=== PATIENT | female | born 1985 | race Caucasian/White ===

== ENCOUNTER → 2020-10-27 13:35 | Outpatient (CLI) | payer OTHER, SELFPAY ==
[2020-10-27] MEDS: COVID-19 VACC, Ad26(JANSSEN)/PF 0.5 ML IM (13:42)
== END ==
PROVIDERS: Visit Provider Internal Medicine
DX: Z23 Encounter for immunization (principal)
CPT/HCPCS: 0031A; 91303

== ENCOUNTER → 2023-07-03 11:40 | Outpatient (CLI) | payer OTHER, SELFPAY ==
[2023-07-03 12:24] LABS: Add Manual Diff / Slide Review NO; Basophils Absolute Auto 0 /uL (0-100); Basophils Percent Auto 0.7 % (0-2); Eosinophils Absolute Auto 100 /uL (0-450); Eosinophils Percent Auto 1.4 % (2-4); Hematocrit 37.7 % (36-46); Hemoglobin 12.4 g/dL (12.0-16.0); Lymphocytes Absolute Auto 1900 /uL (1100-4500); Lymphocytes Percent Auto 30.1 % (25-40); Mean Corpuscular Hemoglobin 29.6 PG (26-34); Mean Corpuscular Volume 89.9 fL (80-100); Monocytes Absolute Auto 400 /uL (0-900); Monocytes Percent Auto 5.6 % (3-14); Neutrophils Absolute Auto 3900 /uL (1500-7000); Neutrophils Percent Auto 62.2 % (50-75); Platelet Count 307 X10^3/uL (150-400); Red Blood Cell Count 4.19 X10^6/uL (4.0-5.2); Red Cell Distribution Width 14.2 % (11.6-14.8); White Blood Cell Count 6.2 X10^3/uL (4.5-11.0)
[2023-07-03 12:48] LABS: Alanine Aminotransferase 31 IU/L (<35); Albumin 4.1 g/dL (3.5-5.0); Albumin Globulin Ratio 1.2 (1.0-2.8); Alkaline Phosphatase 44 U/L (38-126); Aspartate Aminotransferase 36 IU/L (14-36); BUN Creatinine Ratio 22.9 (6-22); Bilirubin Total 0.6 mg/dL (0.2-1.3); Blood Urea Nitrogen 11 mg/dL (7-17); Calcium 9.2 mg/dL (8.4-10.2); Carbon Dioxide 29 mmol/L (22-32); Chloride 102 mmol/L (98-107); Estimated Glomerular Filt Rate > 60 mL/min (>60); Globulin 3.3 g/dL (1.7-4.1); Glucose 83 mg/dL (70-100); Potassium 3.9 mmol/L (3.4-5.1); Sodium 137 mmol/L (137-145); Total Protein 7.4 g/dL (6.3-8.2)
[2023-07-03 12:49] LABS: HEMOLYSIS 58 (0-50)
[2023-07-03 13:25] LABS: Bilirubin Urine UA NEGATIVE (NEGATIVE); Color Urine UA YELLOW; Glucose Urine UA NEGATIVE (Negative); Ketones Urine UA NEGATIVE (NEGATIVE); Leukocyte Esterase Urine UA NEGATIVE (NEGATIVE); Nitrite Urine UA NEGATIVE (Negative); Occult Blood Urine UA NEGATIVE (Negative); Protein Urine UA NEGATIVE (Negative); Urobilinogen Urine UA 0.2 E.U./dL (0.2)
[2023-07-03 13:29] LABS: Appearance Urine UA Clear; pH Urine UA 7.5 (4.5-8.0)
[2023-07-03 13:35] LABS: Bacteria Urine None Seen; Culture Indicated Urine Cult Not Indicated; RBC Urine None Seen (0-5/HPF); Squamous Epithelial Cell Urine 0-1 /HPF (0-5/HPF); WBC Urine None Seen (0-5/HPF)
[2023-07-03 16:05] LABS: TSH w/ Reflex to FT4 2.37 uIU/mL (0.47-4.68)
== END ==
PROVIDERS: PCP Family Medicine; Referring Provider Family Medicine; Visit Provider Family Medicine
DX: R55 Syncope and collapse (principal); R00.2 Palpitations; R31.9 Hematuria, unspecified
CPT/HCPCS: 36415; 80053; 81001; 84443; 85025

== ENCOUNTER → 2023-07-28 14:00 | Outpatient (CLI) | payer OTHER, SELFPAY | LOC: CAR 07-29 06:36 | PROVIDERS: PCP Family Medicine; Referring Provider Family Medicine; Visit Provider Family Medicine | DX: R55 Syncope and collapse (principal); R00.2 Palpitations | CPT/HCPCS: 93246 ==

== ENCOUNTER → 2023-09-10 07:38 | Outpatient (CLI) | payer OTHER, SELFPAY ==
--- NOTE | 2023-09-10 07:43 | DI.US.S_ITS ---
PROCEDURE: US PELVIC COMPLETE INDICATIONS: ABNORMAL BLEEDING. INTERMITTENT SPOTTING X 3 MONTHS. TECHNIQUE: Real-time scanning was performed of the pelvic organs, with image documentation. Additional endovaginal scanning was necessary due to incomplete visualization of the adnexal and endometrial structures by transabdominal scanning. COMPARISON: None. FINDINGS: Uterus: Uterus is anteverted and normal in size at 8.3 x 5.7 x 4.3 cm. The myometrium is heterogeneous. The endometrium measures 16.2 mm combined thickness. The endometrium is diffusely echogenic with a questionable focal isoechoic mass measuring 2.7 x 2.9 x 1.9 cm. There is trace endometrial fluid. Nabothian cysts. Ovaries: The right ovary measures 3.3 x 3.3 x 1.7 cm, with a calculated ovarian volume of 9.3 cc. The left ovary measures 4.1 x 2.9 x 2.4 cm, with a calculated ovarian volume of 14.8 cc. The ovaries have a normal sonographic appearance. There is a mildly complex cystic lesion in the left ovary measuring 2.1 x 1.3 x 1.2 cm with peripheral vascularity. There are greater than 12 follicles in each ovary which are small and peripheral in location. Other: No pathologic free abdominal or pelvic fluid. IMPRESSION: 1. Thickened endometrium measuring 1.6 cm. There is a questionable focal isoechoic mass within the endometrium measuring 2.7 x 2.9 x 1.9 cm. Differential includes residual blood products versus a polyp. Recommend short interval follow-up for further evaluation. 2. Mildly complex cystic lesion in the left ovary measuring 2.1 x 1.3 x 1.2 cm with peripheral vascularity likely represents a corpus luteal cyst versus hemorrhagic cyst. Attention on follow-up ultrasound. Dictated by: Rika Justice M.D. on 09/10/2023 at 11:00 Approved by: Rika Justice M.D. on 09/10/2023 at 11:26
--- NOTE | 2023-09-10 13:09 | DI.ECHO.S_ITS ---
[facility] +---------+ : : [address] [address] : : : : [id number] : : : : Phone: [phone]+ Echocardiogram Report + + :Name: ANNE ELLIS Study Date: 09/10/2023 Height: 62.5 in: :[facility] ReadingLocation: Weight: 152 lb : : Gender: Female BSA: 1.7 m2 : :: 1985 Age: 38 yrs BP: 111/71 mmHg: :Reason For Study: SYNCOPE, TACHYCARDIA : :Ordering Physician: KATE, : :QUINTIN Najera Performed By: Tiffanie Travis : :Referring: QUINTIN LOVE : + + Interpretation Summary The left ventricle is normal in size and wall thickness. The left ventricular ejection fraction is normal. The ejection fraction is estimated to be 60-65%. Diastolic parameters suggest probable normal left ventricular diastolic function and normal filling pressures. The right ventricle is normal in size and function. No gross significant valvular pathology seen. The IVC is of normal diameter and collapses greater than 50% with a sniff. This suggests a low right atrial pressure of 3 mm Hg. Procedure: A two-dimensional transthoracic echocardiogram with color flow and Doppler was performed. The study quality was technically adequate. There is no prior echocardiogram noted for this patient. The patient was in sinus rhythm with heart rates between 61-82 bpm during the exam. Left Ventricle: The left ventricle is normal in size and wall thickness. There is no thrombus. The ejection fraction is estimated to be 60-65%. The left ventricular ejection fraction is normal. Left ventricular wall motion is normal. Diastolic parameters suggest probable normal left ventricular diastolic function and normal filling pressures. Right Ventricle: The right ventricle is normal in size and function. Atria: The left atrial size is normal. Right atrial size is normal. There is no Doppler evidence for an interatrial shunt. Mitral Valve: The mitral valve is normal in structure and function. There is trace mitral regurgitation. Aortic Valve: The aortic valve opens well. Not well-seen from short axis view. There is no aortic valve stenosis. No aortic regurgitation is present. Tricuspid Valve: The tricuspid valve is normal in structure and function. There is trace tricuspid regurgitation. Pulmonary artery pressures cannot be estimated because of the lack of a measurable TR jet velocity. Pulmonic Valve: The pulmonic valve is not well visualized. There is no pulmonic valvular regurgitation. Great Vessels: The aortic root is normal size. The dimensions of the ascending aorta are normal. The IVC is of normal diameter and collapses greater than 50% with a sniff. This suggests a low right atrial pressure of 3 mm Hg. Pericardium/ Pleura There is no pericardial effusion. There is no pleural effusion. MMode/2D Measurements & Calculations LVIDd: 4.4 cm LVOT diam: 2.0 cm LVIDs: 3.1 cm Ao root diam: 2.6 cm FS: 30.2 % asc Aorta Diam: 2.3 cm IVSd: 0.64 cm Ao Arch Diam (Prox Trans): 2.8 cm LVPWd: 0.66 cm LV grayson. diameter/BSA (cm/m^2): 2.6 LV sys. diameter/BSA (cm/m^2): 1.8 LA A2 area: 15.3 cm2 RA long axis: 3.9 cm LA A4 area: 14.1 cm2 RA area: 10.7 cm2 LA length (vol): 4.3 cm RA vol: 24.6 ml LA vol: 43.0 ml RA : 14.4 ml/m2 LA vol index: 25.1 ml/m2 IVC diam: 1.8 cm RVD1 (basal): 3.1 cm RVD2 (mid): 2.6 cm TAPSE: 2.2 cm Doppler Measurements & Calculations Ao V2 max: 138.3 cm/sec LVOT Max Yariel: 116.5 cm/sec Ao V2 mean: 101.1 cm/sec LV V1 max P.4 mmHg Ao max P.7 mmHg LV V1 VTI: 21.7 cm Ao mean P.5 mmHg CM(I,D): 2.4 cm2 Ao V2 VTI: 28.1 cm CM(V,D): 2.6 cm2 sev ratio: 0.77 CM indexed to BSA (cm^2/m^2): 1.4 MV E max yariel: 81.0 cm/sec PA V2 max: 95.3 cm/sec MV A max yariel: 46.9 cm/sec PA V2 mean: 66.2 cm/sec MV E/A: 1.7 PA mean P.9 mmHg Med Peak E' Yariel: 14.2 cm/sec PA pr(Accel): 22.5 mmHg E/E' med: 5.7 Lat Peak E' Yariel: 16.6 cm/sec E/E' lat: 4.9 E/e' average: 5.3 MV dec time: 0.20 sec SV(LVOT): 66.4 ml Reading Physician:05:50 PM
== END ==
LOC: US 07:41
PROVIDERS: PCP Family Medicine; Referring Provider Family Medicine; Visit Provider Family Medicine
DX: N93.9 Abnormal uterine and vaginal bleeding, unspecified (principal); R55 Syncope and collapse; R00.2 Palpitations; R93.89 Abnormal findings on diagnostic imaging of other specified body structures; N83.202 Unspecified ovarian cyst, left side
CPT/HCPCS: 76830; 76856; 93306

== ENCOUNTER → 2023-10-10 08:59 | Outpatient (CLI) | payer OTHER, SELFPAY ==
[2023-10-14 18:09] LABS: Chlamydia trachomatis Negative (Negative); Mycoplasma genitalium Negative (Negative); Neisseria gonorrhoeae Negative (Negative)
== END ==
PROVIDERS: PCP Family Medicine; Visit Provider Family Medicine
DX: Z11.3 Encounter for screening for infections with a predominantly sexual mode of transmission (principal); N93.9 Abnormal uterine and vaginal bleeding, unspecified
CPT/HCPCS: 87210; 87491; 87563; 87591

== ENCOUNTER → 2023-10-10 09:26 | Outpatient (CLI) | payer OTHER, SELFPAY ==
[2023-10-10 11:09] LABS: Follicle Stimulating Hormone 5.25 mIU/mL
[2023-10-10 11:13] LABS: Prolactin 11.9 ng/mL (3.0-18.6)
[2023-10-10 11:30] LABS: Testosterone 63.3 ng/dL (5.71-77.0)
[2023-10-10 11:35] LABS: Appearance Urine UA CLEAR; Bilirubin Urine UA NEGATIVE (NEGATIVE); Color Urine UA YELLOW; Glucose Urine UA NEGATIVE (Negative); Ketones Urine UA NEGATIVE (NEGATIVE); Leukocyte Esterase Urine UA NEGATIVE (NEGATIVE); Nitrite Urine UA NEGATIVE (Negative); Occult Blood Urine UA NEGATIVE (Negative); Protein Urine UA NEGATIVE (Negative); Specific Gravity Urine UA 1.025 (1.000-1.035); Urobilinogen Urine UA 0.2 E.U./dL (0.2)
[2023-10-10 11:43] LABS: Bacteria Urine None Seen; Culture Indicated Urine Cult Not Indicated; RBC Urine None Seen (0-5/HPF); Squamous Epithelial Cell Urine None Seen (0-5/HPF); Urine Volume 10mL (spun); WBC Urine None Seen (0-5/HPF)
[2023-10-10 13:01] LABS: Urine N gonorrhoeae NOT DETECTED
[2023-10-10 13:06] LABS: Urine Chlamydia NOT DETECTED
== END ==
PROVIDERS: PCP Family Medicine; Referring Provider Family Medicine; Visit Provider Family Medicine
DX: F32.9 Major depressive disorder, single episode, unspecified (principal); R31.9 Hematuria, unspecified; R55 Syncope and collapse; R00.2 Palpitations; N93.9 Abnormal uterine and vaginal bleeding, unspecified; Z11.3 Encounter for screening for infections with a predominantly sexual mode of transmission
CPT/HCPCS: 36415; 81001; 83001; 83002; 84146; 84403; 87210; 87491; 87563; 87591

== ENCOUNTER → 2023-11-07 12:25 | Outpatient (CLI) | payer OTHER, SELFPAY ==
--- NOTE | 2023-11-07 12:27 | DI.US.S_ITS ---
PROCEDURE: US EXTREMELY NONVASC UPPER RT INDICATIONS: ARM MASS TECHNIQUE: Real-time scanning was performed of the right arm, with image documentation. COMPARISON: None. FINDINGS: Examination of right proximal forearm at patient's reported area of palpable lump shows solid-appearing structure within subcutaneous soft tissue measures 2.9 x 0.5 x 2.3 cm in size and is isoechoic to adjacent subcutaneous fat. No internal vascularity is seen. IMPRESSION: Finding most consistent with 2.9 x 0.5 x 2.3 cm lipoma within forearm soft tissue suggest clinical correlation and follow-up. Dictated by: Adrián Sen M.D. on 11/07/2023 at 16:09 Approved by: Adrián Sen M.D. on 11/07/2023 at 16:20
--- NOTE | 2023-11-07 12:27 | DI.US.S_ITS ---
PROCEDURE: US PELVIC COMPLETE INDICATIONS: Repeated endometrial polyps TECHNIQUE: Real-time scanning was performed of the pelvic organs, with image documentation. Additional endovaginal scanning was necessary due to incomplete visualization of the adnexal and endometrial structures by transabdominal scanning. COMPARISON: [facility], US, US PELVIC COMPLETE, 09/10/2023, 7:55. FINDINGS: Uterus: Uterus is anteverted and normal in size at 6.4 x 3.8 x 5.2 cm. The myometrium is homogeneous. The endometrium measures 6.9 mm combined thickness. Sonographic findings suggest the presence of a subtle echogenic mass within the uterine fundus which measures 1.4 x 0.5 x 1.5 cm. A vascular stalk is likely present centrally. Ovaries: The right ovary measures 3.3 x 3.6 x 2.2 cm, with a calculated ovarian volume of 13.9 cc. The left ovary measures 3.4 x 2.2 x 2.8 cm, with a calculated ovarian volume of 11.1 cc. The ovaries have a normal sonographic appearance. There are greater than 12 follicles in the bilateral ovaries. No adnexal masses are seen. Other: No pathologic free abdominal or pelvic fluid. IMPRESSION: 1. Sonographic findings suggesting endometrial polyp. If further characterization is warranted, hysterosonogram could be used. 2. Findings meet the [place] definition of polycystic ovaries. In the absence of ovulatory dysfunction or clinically/biochemically diagnosed hyperandrogenism, findings are non specific and do not indicate the presence of polycystic ovarian syndrome. We strive to produce accurate, complete, and clear reports of imaging services. To assist us in improving patient care, this report was composed using standard report templates and voice recognition software. Therefore, it may contain abnormal punctuation, insertions and/or omissions. Occasional wrong-word or sound-alike substitutions may occur. Though we review the report and make efforts to correct it, we do recommend that the report be read carefully in proper context to recognize any text inaccuracies. Dictated by: Cydney Villalta M.D. on 11/07/2023 at 16:53 Approved by: Cydney Villalta M.D. on 11/07/2023 at 16:56
== END ==
PROVIDERS: PCP Family Medicine; Referring Provider Family Medicine; Visit Provider Family Medicine
DX: N93.9 Abnormal uterine and vaginal bleeding, unspecified (principal); R22.31 Localized swelling, mass and lump, right upper limb; N84.0 Polyp of corpus uteri; R93.89 Abnormal findings on diagnostic imaging of other specified body structures; R93.5 Abnormal findings on diagnostic imaging of other abdominal regions, including retroperitoneum
CPT/HCPCS: 76830; 76856; 76882; 93975

== ENCOUNTER 2024-01-02 08:13 | Day surgery (SDC) | payer OTHER, SELFPAY ==
[2023-12-31 12:24] VITALS: BMI 27.5
--- NOTE | 2024-01-02 | PATH_ITS ---
[facility] Accession Number: [id number] No. of containers..01 Tissue . 01 Material submitted: . endometrium - ENDOMETRIAL POLYP . 01 Diagnosis: ENDOMETRIAL POLYP: Portions of proliferative and disordered proliferative endometrium; negative for endometrioid intraepithelial neoplasia or malignancy. Scant portions of smooth muscle are present; negative for significant atypia. Some endometrial fragments demonstrate prominent vessels, suggestive of polyp, if clinical and imaging studies are concordant. MRV 01/07/2024 1416 Local . 01 Electronically signed: . Bhavana Wright MD, Pathologist NPI- [id number] . 01 Gross description: . ENDOMETRIAL POLYP: Received in formalin are minute fragments of mucoid and hemorrhagic material measuring 2.0 x 2.0 x 0.2 cm in aggregate. Submitted in toto in 1 cassette. /SONJA 01/05/20241933 Local . 01 Pathologist provided ICD-10: N84.1 . 01 CPT . 579470 Specimen Comment: A courtesy copy of this report has been sent to [facility] Pathology Performed at: [address] [address], [place], [place] [id number] MD aMngo Cedillo MD Phone: [phone]
[2024-01-02] MEDS: LACTATED RINGERS 1,000 ML 42 ML IV (08:42)
[2024-01-02] MEDS: ACETAMINOPHEN 325 MG TABLET 975 MG PO (08:44)
[2024-01-02 08:47] VITALS: BP 103/70; PULSE 72; RESP 16; TEMP 36.6; O2SAT 100; BMI 27.3
--- NOTE | 2024-01-02 08:56 | PM.HP.1 ---
History of Present Illness History of Present Illness Chief complaint: abnormal uterine bleeding Narrative: 38-year-old female presenting today for same-day surgery for hysteroscopic polypectomy with Mirena IUD insertion. She reports feeling well, continuing to have some irregular bleeding. Denies any other changes to her symptoms, or new medical conditions. [facility] Medical History Lipoma Polycystic ovarian syndrome Ovarian cyst Endometrial thickening on ultrasound MDD (major depressive disorder) Surgical History History of tonsillectomy History of wisdom tooth extraction Family History Mother Cancer Father Bipolar 1 disorder Social History marital status: number of children: 0 household members: spouse housing: house occupational status: employed current occupational exposures/hazards: Yes Previous occupational history: works for Remote [employer] Smoking Status: Never smoker Meds Home Medications and Allergies Home Medications Medication Instructions Recorded Confirmed Type cholecalciferol (vitamin D3) 125 125 mcg PO DAILY 06/30/23 11/21/23 History mcg (5,000 unit) capsule multivitamin 1 tab PO DAILY 06/30/23 11/21/23 History omega 2-xyy-mcz-fish oil 1,000 mg 1 cap PO BID 06/30/23 11/21/23 History (120 mg-180 mg) capsule (Fish Oil) Allergies Allergy/AdvReac Type Severity Reaction Status Date / Time No Known Drug Allergies Allergy Verified 01/02/24 08:40 Review of Systems Review of Systems ROS: Yes All systems reviewed with the patient and are negative except as otherwise documented Exam Vital Signs (past 8 hours): - 01/02/24 08:47 Temperature 98 F Pulse Rate 72 Respiratory Rate 16 Blood Pressure 103/70 Pulse Oximetry 100 Oxygen Delivery Method Room Air Oxygen Delivery Method Room Air Const General: healthy appearing, comfortable and No acute distress Resp Effort & Inspection: normal respiratory effort and able to speak in complete sentences Skin General: no rashes or lesions noted Neuro Cognition: normal cognition Speech: speech normal Extrem General: normal to inspection Psych Mood: congruent mood Affect: normal affect Objective Imaging US - abdomen: Radiologist's impression: INDICATIONS: Repeated endometrial polyps TECHNIQUE: Real-time scanning was performed of the pelvic organs, with image documentation. Additional endovaginal scanning was necessary due to incomplete visualization of the adnexal and endometrial structures by transabdominal scanning. COMPARISON: [facility], US, US PELVIC COMPLETE, 09/10/2023, 7:55. FINDINGS: Uterus: Uterus is anteverted and normal in size at 6.4 x 3.8 x 5.2 cm. The myometrium is homogeneous. The endometrium measures 6.9 mm combined thickness. Sonographic findings suggest the presence of a subtle echogenic mass within the uterine fundus which measures 1.4 x 0.5 x 1.5 cm. A vascular stalk is likely present centrally. Ovaries: The right ovary measures 3.3 x 3.6 x 2.2 cm, with a calculated ovarian volume of 13.9 cc. The left ovary measures 3.4 x 2.2 x 2.8 cm, with a calculated ovarian volume of 11.1 cc. The ovaries have a normal sonographic appearance. There are greater than 12 follicles in the bilateral ovaries. No adnexal masses are seen. Other: No pathologic free abdominal or pelvic fluid. IMPRESSION: 1. Sonographic findings suggesting endometrial polyp. If further characterization is warranted, hysterosonogram could be used. 2. Findings meet the [place] definition of polycystic ovaries. In the absence of ovulatory dysfunction or clinically/biochemically diagnosed hyperandrogenism, findings are non specific and do not indicate the presence of polycystic ovarian syndrome. We strive to produce accurate, complete, and clear reports of imaging services. To assist us in improving patient care, this report was composed using standard report templates and voice recognition software. Therefore, it may contain abnormal punctuation, insertions and/or omissions. Occasional wrong-word or sound-alike substitutions may occur. Though we review the report and make efforts to correct it, we do recommend that the report be read carefully in proper context to recognize any text inaccuracies. Dictated by: Cydney Villalta M.D. on 11/07/2023 at 16:53 Approved by: Cydney Villalta M.D. on 11/07/2023 at 16:56 Assessment & Plan Assessment and plan (1) Abnormal uterine bleeding due to endometrial polyp: Status: Acute Assessment & Plan narrative: 38-year-old female with suspected endometrial polyp, here for hysteroscopic polypectomy with Mirena IUD insertion. We reviewed the risks/benefits/alternatives to the procedure, and surgical consent was signed today. -no preoperative antibiotics indicated -VTE risk low, SCDs for prophylaxis -plan for same-day procedure with discharge home today Surgery consent We discussed the risks/benefits/alternatives to the proposed procedure, to include but not limited to: -risk of bleeding, requiring medications, blood products, or other procedures as indicated -risk of infection, requiring prolonged hospital stay or other procedures -risk of injury to other structures, including bowel, bladder, blood vessels, nerves, etc. which may also require additional procedures -risk of adverse reaction to anesthesia or medications -risk of venous thromboembolism and associated sequelae -risk of rare complications such as cardiac arrest, or extremely rarely, Patient is aware of the risks, and desires to proceed with planned surgical procedure. Time Spent With Patient Time with patient: less than 30 minutes
--- NOTE | 2024-01-02 09:34 | P.OP_ITS ---
Operative Date/Time/Diagnoses Date of procedure: 01/02/24 Time of procedure: 09:00 Pre-op diagnosis: Abnormal uterine bleeding Suspected endometrial polyp Post-op diagnosis: same Procedure & Clinicians Procedure: Diagnostic hysteroscopy Hysteroscopic polypectomy Dilation and curettage Mirena intrauterine device insertion Same procedure as scheduled: Yes Indications: 38yo F with AUB-P counseled and consented for hysteroscopic polypectomy with Mirena IUD insertion. Surgeon: Mahsa Stark Click Yes if Unassisted: Yes Anesthesia Type: General Operative Notes Findings: Endometrial polyp noted on the left lateral uterine wall. Otherwise normal appearing uterine cavity. Bilateral tubal ostia visualized. Closure Type: not applicable Specimen(s): other (endometrial polyp) Prosthetic devices, grafts, tissues, transplants, or devices: Mirena IUD Lot #[id number] Exp: Estimated Blood Loss (mL): 5 Blood products transfused: none Procedure in detail: The risks, benefits, indications and alternatives of the procedure were reviewed with the patient and informed consent was obtained. The pt was taken to the operating room where general anesthesia with LMA was obtained without diffic ulty. The pt was then placed in the low lithotomy position using gel-padded Shayne stirrups. Sequential compression devices were placed bilaterally for VTE prophylaxis. The pt was then prepped and draped in the sterile fashion. A sterile speculum was placed in the patient?s vagina and the cervix was visualized. A single tooth tenaculum was used to grasp the anterior lip of the cervix. The cervix was then gently, dilated to a size 8 Hegar dilator. The Myosure operative hysteroscope was first primed and pressure set. The operative hysteroscope was then advanced through the endocervical canal under direct visualization. The uterus was distended with warm saline, and notable for the above findings. The Myosure Lite was then inserted into the operative hysteroscope. The endometrial polyp was resected easily. The operative hysteroscope was then removed under direct visualization. Tissue obtained was sent to pathology for review. The Mirena IUD was then opened and inserted per auto fleet maintenance manager instructions. The strings were trimmed to 2cm. The single tooth tenaculum was removed from the anterior lip of the cervix. The tenaculum site was noted to be hemostatic after direct pressure and silver nitrate was applied. All instruments were then removed from the patient?s vagina. Hysteroscopic fluid deficit was 300cc of normal saline. The patient tolerated the procedure well. At the completion of the case the sponge and needle counts were correct x 2. The patient was taken to the PACU in stable condition. Complications: none Post-operative Condition: stable Disposition: PACU Plan for aftercare: Discharge home once meeting discharge criteria.
[2024-01-02 09:38] VITALS: BP 94/64; PULSE 70; RESP 16; TEMP 36.4; O2SAT 98
[2024-01-02 09:42] VITALS: BP 96/69; PULSE 72; RESP 15; O2SAT 99
[2024-01-02 09:47] VITALS: BP 103/77; PULSE 72; RESP 16; O2SAT 97
--- NOTE | 2024-01-02 09:48 | SUR.OPER ---
Lithotomy on padded OR bed, head on pillow, arms secured on padded arm boards at <90 degrees abduction. Legs secured in padded yellow fins stirrups.
[2024-01-02 10:04] VITALS: BP 107/72; PULSE 64; RESP 18; TEMP 36.8; O2SAT 100
== END 2024-01-02 10:33 | disposition home or self-care (01) ==
PROVIDERS: PCP Family Medicine; Referring Provider Student in an Organized Health Care Education/Training Program; Visit Provider Student in an Organized Health Care Education/Training Program
PROC: 0UDB8ZZ Extraction of Endometrium, Via Natural or Artificial Opening Endoscopic (ICD-10-PCS; CPT 58558; principal; 2024-01-02 09:00)
DX: N93.9 Abnormal uterine and vaginal bleeding, unspecified (principal); Z30.430 Encounter for insertion of intrauterine contraceptive device; N84.0 Polyp of corpus uteri
CPT/HCPCS: 58558; 58300; 81025; J1100; J2250; J2405; J2704; J3010; J7298

== ENCOUNTER → 2024-06-07 16:20 | Outpatient (CLI) | payer OTHER, SELFPAY ==
--- NOTE | 2024-06-07 16:23 | DI.US.S_ITS ---
PROCEDURE: US PELVIC COMPLETE INDICATIONS: check IUD placement; dyspareunia TECHNIQUE: Real-time scanning was performed of the pelvic organs, with image documentation. Additional endovaginal scanning was necessary due to incomplete visualization of the adnexal and endometrial structures by transabdominal scanning. COMPARISON: [facility], US, US PELVIC COMPLETE, 11/07/2023, 13:14. FINDINGS: Uterus: Uterus is anteverted and normal in size at 8.7 x 3.3 x 5.1 cm. The myometrium is homogeneous. Intrauterine device is seen in expected position within the endometrial canal. Ovaries: The right ovary measures 3.4 x 2.2 x 3.2 cm, with a calculated ovarian volume of 12.3 cc. The left ovary measures 3.7 x 2.7 x 3.2 cm, with a calculated ovarian volume of 16.7 cc. The ovaries have a normal sonographic appearance. Greater than 12 follicles can be seen in each ovary. No adnexal masses are seen. Other: No pathologic free abdominal or pelvic fluid. IMPRESSION: 1. Intrauterine device is in expected position within the endometrial canal. No recurrent endometrial thickening is seen. 2. Polycystic morphology of the ovaries. Recommend correlation with clinical and laboratory findings to exclude polycystic ovarian syndrome. Approved by: Bhavesh Casillas M.D. on 06/08/2024 at 13:49
== END ==
PROVIDERS: PCP Family Medicine; Referring Provider Student in an Organized Health Care Education/Training Program; Visit Provider Student in an Organized Health Care Education/Training Program
DX: N93.9 Abnormal uterine and vaginal bleeding, unspecified (principal); N94.10 Unspecified dyspareunia; Z97.5 Presence of (intrauterine) contraceptive device
CPT/HCPCS: 76856

== ENCOUNTER 2025-06-03 09:38 | Emergency (ER) | payer OTHER, SELFPAY ==
[2025-06-03] VITALS (8 sets, daily range): BP systolic 104–129; BP diastolic 59–74; PULSE 66–94; RESP 16–22; TEMP 36.3; O2SAT 97–100; BMI 29.2
--- NOTE | 2025-06-03 10:08 | EKG_ITS ---
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
--- NOTE | 2025-06-03 10:11 | DI.RAD.S_ITS ---
PROCEDURE: XR CHEST 1V INDICATIONS: Chest pain TECHNIQUE: One view of the chest was acquired. COMPARISON: None. FINDINGS: Surgical changes and devices: None. Lungs and pleura: Lungs are clear. No pleural effusions or pneumothorax. Mediastinum: Mediastinal contours appear normal. Heart size is normal. Bones and chest wall: No suspicious bony lesions. Overlying soft tissues appear unremarkable. IMPRESSION: No acute cardiopulmonary abnormality is seen. Dictated by: Indio Beard M.D. on 06/03/2025 at 10:03 Approved by: Indio Beard M.D. on 06/03/2025 at 10:03
--- NOTE | 2025-06-03 10:13 | ED.CHESTPAIN ---
HPI - Chest Pain General Chief Complaint: Chest Pain Stated Complaint: Chest pain, this morning Time Seen by Provider: 06/03/25 10:11 Source: patient Mode of arrival: Ambulatory Limitations: no limitations History of Present Illness HPI narrative: patient is sent here from work/medical clinic for sudden onset of left-sided pressure lasting about 30 minutes and has resolved. She did have palpitations feeling short of breath sweaty but no nausea. Pain did not radiate. [place] dizzy. [place] similar to episode she had about a year ago and had Holter monitoring for 2 weeks without any diagnosis. Has been doing well since then. Patient denies any history of blood clots in legs or lungs. No recent long travel. No calf pain. No primary family history of coronary artery disease. Patient does not smoke. Patient has low heart score. Denies abdominal pain or back pain. No syncope. She was dizzy Related Data Home Medications ?Medication ?Instructions ?Recorded ?Confirmed cholecalciferol (vitamin D3) 125 125 mcg PO DAILY 06/30/23 11/21/23 mcg (5,000 unit) capsule multivitamin 1 tab PO DAILY 06/30/23 11/21/23 omega 3-ttz-lhq-fish oil 1,000 mg 1 cap PO BID 06/30/23 11/21/23 (120 mg-180 mg) capsule (Fish Oil) Previous Rx's ?Medication ?Instructions ?Recorded estradiol 1 mg tablet 1 mg PO DAILY #42 tabs 06/21/24 Allergies Allergy/AdvReac Type Severity Reaction Status Date / Time No Known Drug Allergies Allergy Verified 06/03/25 10:03 Review of Systems Review of Systems Narrative: GENERAL: Negative chills, fatigue, malaise, fever, positivesweats. HEENT: Negative sinus pain, ear pain, sore throat RESPIRATORY: positivedyspnea, negative cough CARDIOVASCULAR: Positivechest pain, palpitations GASTROINTESTINAL: Negative vomiting, nausea, abdominal pain : Negative dysuria, frequency, hematuria MUSCULOSKELETAL: Negative muscle or bony pain SKIN: Negative rash, skin lesions NEUROLOGIC: Negative weakness, numbness, positive dizzy ROS Unobtainable: All systems reviewed & are unremarkable except as noted in HPI and below Patient History Medical History (Updated 06/03/25 @ 13:14 by Hannah Espinosa MD) Abnormal uterine bleeding due to endometrial polyp Lipoma Polycystic ovarian syndrome Ovarian cyst Endometrial thickening on ultrasound MDD (major depressive disorder) Surgical History (Updated 05/10/24 @ 08:31 by Mahsa Stark DO) Status post hysteroscopic polypectomy (~12/2023) History of tonsillectomy History of wisdom tooth extraction Family History Mother Cancer Father Bipolar 1 disorder Social History marital status: number of children: 0 household members: spouse housing: house occupational status: employed current occupational exposures/hazards: Yes Previous occupational history: works for [email or web address] Smoking Status: Never smoker Smoking Status: Never smoker alcohol intake frequency: holidays/special occasions only Exam Narrative Exam Narrative: GENERAL: in no distress, not toxic not dyspneic HEAD: Normocephalic. EYES: Pupils equal round ENT: Mucous membranes moist. NECK: Trachea midline. CARDIOVASCULAR: Regular rate and rhythm RESPIRATORY: Clear to auscultation. Breath sounds equal bilaterally. No wheezes, rales, or rhonchi. GASTROINTESTINAL: Abdomen soft, non-tender BACK: No flank tenderness. EXTREMITIES: No gross deformities. NEURO: AOx4. Clear speech SKIN: Warm and dry PSYCH: Not anxious, is cooperative Initial Vital Signs Initial Vital Signs: Vital Signs Temperature 97.4 F L 06/03/25 10:02 Pulse Rate 71 06/03/25 10:02 Respiratory Rate 16 06/03/25 10:02 Blood Pressure 117/74 06/03/25 10:02 Pulse Oximetry 100 06/03/25 10:02 Oxygen Delivery Method Room Air 06/03/25 10:02 Scores HEART Score Heart Score history: Slightly Suspicious Heart Score EKG: Normal Heart Score Age: < 45 years old Heart Score risk factors: No known risk factors Heart Score troponin: < or = to normal limit Heart Score Total: 0 Course Orders Ordered: ED Orders 06/03/25 10:08 EKG-12 Lead Stat 06/03/25 10:11 XR chest 1V Stat 06/03/25 10:25 EC echo limited Stat Exercise treadmill NON NUC Stat Complete Blood Count AUTO DIFF Stat Comprehensive Metabolic Panel Stat D Dimer Stat Magnesium Stat PTT Partial Thromboplastin Lane Stat Test Serum,Qual Stat Prothrombin Time INR Stat Troponin I Stat Vital Signs Vital signs: Vital Signs - 8 hr 06/03/25 10:02 06/03/25 11:36 06/03/25 11:38 Temperature 97.4 F L Pulse Rate 71 69 66 Respiratory Rate 16 22 20 Blood Pressure 117/74 Pulse Oximetry 100 100 100 Oxygen Delivery Method Room Air 06/03/25 11:38 06/03/25 12:00 06/03/25 12:01 Temperature Pulse Rate 76 Respiratory Rate 20 Blood Pressure 129/64 104/59 L Pulse Oximetry 100 Oxygen Delivery Method 06/03/25 12:01 06/03/25 12:42 06/03/25 12:42 Temperature Pulse Rate 75 93 H Respiratory Rate 20 Blood Pressure 110/72 Pulse Oximetry 100 97 Oxygen Delivery Method 06/03/25 12:44 06/03/25 12:44 06/03/25 13:00 Temperature Pulse Rate 94 H Respiratory Rate 20 Blood Pressure 121/61 108/67 Pulse Oximetry 97 Oxygen Delivery Method 06/03/25 13:00 Temperature Pulse Rate 81 Respiratory Rate 21 Blood Pressure Pulse Oximetry 97 Oxygen Delivery Method MDM - Chest Pain Lab Data 06/03/25 10:25 06/03/25 10:25 Labs: Lab Results 06/03/25 Range/Units 10:25 WBC 7.7 (4.5-11.0) X10^3/uL RBC 4.42 (4.0-5.2) X10^6/uL Hgb 13.2 (12.0-16.0) g/dL Hct 39.5 (36-46) % MCV 89.2 (80-100) fL MCH 29.8 (26-34) PG MCHC 33.4 (30-36) % RDW 13.8 (11.6-14.8) % Plt Count 314 (150-400) X10^3/uL Neut % (Auto) 65.6 (50-75) % Lymph % (Auto) 26.1 (25-40) % [place] % (Auto) 6.2 (3-14) % Eos % (Auto) 1.6 L (2-4) % Baso % (Auto) 0.5 (0-2) % Neut # (Auto) 5000 (8811-9530) /uL Lymph # (Auto) 2000 (3014-2956) /uL [place] # (Auto) 500 (0-900) /uL Eos # (Auto) 100 (0-450) /uL Baso # (Auto) 0 (0-100) /uL PT 12.8 H (9.4-12.5) SECONDS INR 1.1 (0.9-1.3) APTT 30 (25.1-36.5) SECONDS D-Dimer 406 (<500) ng/ml Sodium 141 (137-145) mmol/L Potassium 3.8 (3.4-5.1) mmol/L Chloride 104 (98-107) mmol/L Carbon Dioxide 27 (22-32) mmol/L BUN 15 (7-17) mg/dL Creatinine 0.66 (0.52-1.04) mg/dL Estimated GFR > 60 (>60) mL/min BUN/Creatinine Ratio 22.7 H (6-22) Glucose 94 (70-99) mg/dL Calcium 9.3 (8.4-10.2) mg/dL Magnesium 2.1 (1.6-2.3) mg/dL Total Bilirubin 0.3 (0.2-1.3) mg/dL AST 26 (14-36) IU/L ALT 19 (<35) IU/L Alkaline Phosphatase 79 (38-126) U/L Troponin I < 0.012 (0.01-0.034) ng/mL Total Protein 8.0 (6.3-8.2) g/dL Albumin 4.7 (3.5-5.0) g/dL Globulin 3.3 (1.7-4.1) g/dL Albumin/Globulin Ratio 1.4 (1.0-2.8) Serum , Qual Negative (Negative) Imaging Data Chest x-ray: Radiologist's Impression: [address] [address] XRay Report Signed Patient: Anne Ellis MR#: [id number] : 1985 Acct:[id number] Age/Sex: 40 / F Date of Service: 06/03/25 Loc: ED Accession Number: [id number] Procedure: XR chest 1V Ordering Provider: Hannah Espinosa MD PROCEDURE: XR CHEST 1V INDICATIONS: Chest pain TECHNIQUE: One view of the chest was acquired. COMPARISON: None. FINDINGS: Surgical changes and devices: None. Lungs and pleura: Lungs are clear. No pleural effusions or pneumothorax. Mediastinum: Mediastinal contours appear normal. Heart size is normal. Bones and chest wall: No suspicious bony lesions. Overlying soft tissues appear unremarkable. IMPRESSION: No acute cardiopulmonary abnormality is seen. Dictated by: Indio Beard M.D. on 06/03/2025 at 10:03 Approved by: Indio Beard M.D. on 06/03/2025 at 10:03 stress test : Radiologist's Impression: [place] [address] Nuclear Medicine Report Signed Patient: Anne Ellis MR#: [id number] : 1985 Acct:[id number] Age/Sex: 40 / F Date of Service: 06/03/25 Loc: ED Accession Number: [id number] Procedure: Exercise treadmill NON NUC Ordering Provider: Hannah Espinosa MD PROCEDURE:NM EXERCISE TREADMILL NON NUC COMPARISON:None. INDICATIONS:chest pain FINDINGS:Patient exercised per the standard Howard protocol. Total exercise time was 9 minutes and 59 seconds. Test was terminated secondary to fatigue. Maximum heart rate attained is 189 bpm which is 103% of max impacted heart rate. Maximum blood pressure was 140/[place] [address]. JEANNE -10%. 12.8 METS. Significant baseline artifact noted in the early stress phase. However baseline artifact resolved as the stress test progressed. No ischemic changes noted. No arrhythmias present. Normal heart rate and blood pressure response to exercise present. No chest pains voiced. IMPRESSION: 1. Negative exercise treadmill stress test for ischemia. 2. Good exercise capacity. *Dr. Hannah Espinosa notified of results. Dictated by: Jt Sen M.D. on 06/03/2025 at 12:45 Approved by: Jt Sen M.D. on 06/03/2025 at 12:49 echocardiogram: Radiologist's Impression: [place] [id number] Echocardiography Report Signed Patient: Anne Ellis MR#: [id number] : 1985 Acct:[id number] Age/Sex: 40 / F Date of Service: 06/03/25 Loc: ED Accession Number: [id number] Procedure: EC echo limited Ordering Provider: Hannah Espinosa MD [facility]---------+ [facility] : : [address] : : [place] : : [id number] : : Phone: [phone] Echocardiogram Report + + :Name: ANNE ELLIS Study Date: 06/03/2025 Height: 62 in : :Hospital ReadingLocation: Weight: 165 lb : : Gender: Female BSA: 1.8 m2 : :: 1985 Age: 40 yrs BP: 117/74 mmHg: :Reason For Study: Chest pain : :Ordering Physician: FRANCISCA, : :HANNAH Performed By: mAilcar Dyson : :Referring: HANNAH ESPINOSA : + + Interpretation Summary Normal echocardiogram. Procedure: A two-dimensional transthoracic echocardiogram with color flow and Doppler was performed. The study quality was technically adequate. There is no prior echocardiogram noted for this patient. The patient was in normal sinus rhythm during the exam. Left Ventricle: The left ventricle is normal in size and wall thickness. Left ventricular systolic function is normal. The ejection fraction is estimated to be 60-65%. There are no focal wall motion abnormalities. Normal diastolic function. Right Ventricle: The right ventricle is normal in size and function. Atria: The left atrial size is normal. Right atrial size is normal. There is no Doppler evidence for an interatrial shunt. Mitral Valve: The mitral valve leaflets appear to open well. There is no mitral valve stenosis. There is trace mitral regurgitation. Aortic Valve: The aortic valve is trileaflet. The aortic valve opens well. There is no aortic valve stenosis. No aortic regurgitation is present. Tricuspid Valve: The tricuspid valve is not well visualized, but is grossly normal. There is trace tricuspid regurgitation. The right ventricular systolic pressure is estimated to be at least 20 mmHg based on an estimated right atrial pressure of 3 mm Hg. Pulmonic Valve: The pulmonic valve is not well seen, but is grossly normal. There is a trace or physiologic amount of pulmonic regurgitation. Great Vessels: The aortic root is normal size. The ascending aorta is normal in size. The aortic arch could not be visualized. The pulmonary artery is normal size. The IVC is of normal diameter and collapses greater than 50% with a sniff. This suggests a low right atrial pressure of 3 mm Hg. Pericardium/ Pleura There is no pericardial effusion. MMode/2D Measurements & Calculations LVIDd: 4.8 cm LVOT diam: 1.9 cm LVIDs: 3.0 cm Ao root diam: 2.7 cm FS: 36.3 % asc Aorta Diam: 2.5 cm IVSd: 0.66 cm LVPWd: 0.84 cm LV grayson. diameter/BSA (cm/m^2): 2.7 LV sys. diameter/BSA (cm/m^2): 1.7 LA A2 area: 17.3 cm2 RA long axis: 4.1 cm LA A4 area: 17.6 cm2 RA area: 9.5 cm2 LA length (vol): 5.2 cm RA vol: 18.8 ml LA vol: 49.9 ml RA : 10.6 ml/m2 LA vol index: 28.3 ml/m2 IVC diam: 1.4 cm RVD1 (basal): 2.2 cm TAPSE: 1.9 cm Doppler Measurements & Calculations Ao V2 max: 143.5 cm/sec LVOT Max Yariel: 123.4 cm/sec Ao V2 mean: 100.2 cm/sec LV V1 max P.1 mmHg Ao max P.2 mmHg LV V1 VTI: 22.8 cm Ao mean P.4 mmHg CM(I,D): 2.3 cm2 Ao V2 VTI: 28.0 cm CM(V,D): 2.4 cm2 sev ratio: 0.81 CM indexed to BSA (cm^2/m^2): 1.3 MV E max yariel: 82.3 cm/sec TR max yariel: 206.6 cm/sec MV A max yariel: 50.0 cm/sec TR max P.1 mmHg MV E/A: 1.6 PA V2 max: 91.9 cm/sec MV dec time: 0.21 sec PA V2 mean: 68.9 cm/sec PA mean P.0 mmHg PA pr(Accel): 31.5 mmHg SV(LVOT): 63.2 ml Qp/Qs (V,Ao): 1.0/4.3 Qp/Qs (V,LVOT): 1.0/1.8 Reading Physician:12:16 PM [facility] Narrative Medical decision making narrative: patient is sent here from work/medical clinic for sudden onset of left-sided pressure lasting about 30 minutes and has resolved. She did have palpitations feeling short of breath sweaty but no nausea. Pain did not radiate. [place] dizzy. [place] similar to episode she had about a year ago and had Holter monitoring for 2 weeks without any diagnosis. Has been doing well since then. Patient denies any history of blood clots in legs or lungs. No recent long travel. No calf pain. No primary family history of coronary artery disease. Patient does not smoke. Patient has low heart score. Denies abdominal pain or back pain. No syncope. She was dizzy [facility] After history and exam, CBC CMP troponin PT INR PTT D-dimer chest x-ray test EKG Differential considered: Includes but not limited to STEMI non-STEMI SVT atrial fibrillation atrial flutter aortic dissection Medical records reviewed: Zio patch completed September 03, 2023. No V-tach no pauses no AV block no atrial fibrillation Lab Test results independently reviewed as above. Pertinent findings: WBC 7.7 hemoglobin 13.2 INR 1.1 sodium 141 potassium 3.8 glucose 94 troponin less than 0.012 negative D-dimer 406 Independently reviewed EKG normal sinus rhythm normal EKG no ST elevation or depression Imaging studies independently reviewed: chest x-ray no acute finding , stress test normal Consultations: 10:27 a.m.. Spoke with Cardiology on-call, Dr. Piña, recommends non nuclear exercise treadmill stress test now and echocardiogram. If available. Otherwise follow up in the office with him. Patient has a low heart risk factors. Low heart score. 1:[address] Sen, cardiology, he read the stress test. It is normal. Re-evaluations: 1:10 p.m.. I spoke with patient and partner results. They are reassuring. Source of her symptoms possibly due to high intake of caffeine products. 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 She consumes a lot of caffeine. At 6:00 a.m. today she had a monster drink and coffee. High energy drink. This could be the source of her palpitations. However chest low heart risk factors. Return precautions reviewed with her. No new medications indicated this time. She does have a primary care to follow up with. Work note will be provided. They desire discharge home. Partner states she does drink a lot of caffeine products because of her requirement for changing shifts. Discussion: appropriate for discharge home. Exam is reassuring. Patient has stress test echocardiogram here. D-dimer is normal. Patient has low heart risk factors. Return precautions reviewed. Symptom free at time of discharge. Patient desires discharge home. Diagnosis: palpitations, atypical chest pain Discharge Plan Departure Patient Disposition: Home Clinical Impression: Palpitations, Atypical chest pain Instructions: DI for Atypical Chest Pain, DI for Arrhythmias Activity Restrictions/Additional Instructions: Your exam and laboratory studies and stress test and echocardiogram are reassuring at this time. Please reduce your caffeine/energy drink consumption as this will make palpitations and chest discomfort worse. Work note has been provided for you. Return if worse if any questions or concerns. Please see your family doctor next week for re-evaluation. Prescriptions: No Action multivitamin Tablet 1 tab PO DAILY omega 3-src-mvx-fish oil [Fish Oil] 1,000 mg (120 mg-180 mg) capsule 1 cap PO BID cholecalciferol (vitamin D3) 125 mcg (5,000 unit) capsule 125 mcg PO DAILY estradiol 1 mg tablet 1 mg PO DAILY Qty: 42 0RF Rx Instructions: take 1 tab daily for 2 weeks at a time for bothersome vaginal bleeding Referrals: Марина Florentino MD [Primary Care Provider, Family Practice] Stand Alone Forms: Patient Portal/API, Work Release Note
--- NOTE | 2025-06-03 10:25 | DI.NM.S_ITS ---
PROCEDURE: NM EXERCISE TREADMILL NON NUC COMPARISON: None. INDICATIONS: chest pain FINDINGS: Patient exercised per the standard Howard protocol. Total exercise time was 9 minutes and 59 seconds. Test was terminated secondary to fatigue. Maximum heart rate attained is 189 bpm which is 103% of max impacted heart rate. Maximum blood pressure was 140/[place] [address]. JEANNE -10%. 12.8 METS. Significant baseline artifact noted in the early stress phase. However baseline artifact resolved as the stress test progressed. No ischemic changes noted. No arrhythmias present. Normal heart rate and blood pressure response to exercise present. No chest pains voiced. IMPRESSION: 1. Negative exercise treadmill stress test for ischemia. 2. Good exercise capacity. *Dr. Hair Govea notified of results. Dictated by: Jt Sen M.D. on 06/03/2025 at 12:45 Approved by: Jt Sen M.D. on 06/03/2025 at 12:49
--- NOTE | 2025-06-03 10:25 | DI.ECHO.S_ITS ---
[facility] +---------+ [facility] : : [address] : : [place] : : [address] : : Phone: [phone] Echocardiogram Report + + :Name: ANNE ELLIS Study Date: 06/03/2025 Height: 62 in : :Hospital ReadingLocation: Weight: 165 lb : : Gender: Female BSA: 1.8 m2 : :: 1985 Age: 40 yrs BP: 117/74 mmHg: :Reason For Study: Chest pain : :Ordering Physician: FRANCISCA, : :HANNAH Performed By: Amilcar Dyson : :Referring: HANNAH ESPINOSA : + + Interpretation Summary Normal echocardiogram. Procedure: A two-dimensional transthoracic echocardiogram with color flow and Doppler was performed. The study quality was technically adequate. There is no prior echocardiogram noted for this patient. The patient was in normal sinus rhythm during the exam. Left Ventricle: The left ventricle is normal in size and wall thickness. Left ventricular systolic function is normal. The ejection fraction is estimated to be 60-65%. There are no focal wall motion abnormalities. Normal diastolic function. Right Ventricle: The right ventricle is normal in size and function. Atria: The left atrial size is normal. Right atrial size is normal. There is no Doppler evidence for an interatrial shunt. Mitral Valve: The mitral valve leaflets appear to open well. There is no mitral valve stenosis. There is trace mitral regurgitation. Aortic Valve: The aortic valve is trileaflet. The aortic valve opens well. There is no aortic valve stenosis. No aortic regurgitation is present. Tricuspid Valve: The tricuspid valve is not well visualized, but is grossly normal. There is trace tricuspid regurgitation. The right ventricular systolic pressure is estimated to be at least 20 mmHg based on an estimated right atrial pressure of 3 mm Hg. Pulmonic Valve: The pulmonic valve is not well seen, but is grossly normal. There is a trace or physiologic amount of pulmonic regurgitation. Great Vessels: The aortic root is normal size. The ascending aorta is normal in size. The aortic arch could not be visualized. The pulmonary artery is normal size. The IVC is of normal diameter and collapses greater than 50% with a sniff. This suggests a low right atrial pressure of 3 mm Hg. Pericardium/ Pleura There is no pericardial effusion. MMode/2D Measurements & Calculations LVIDd: 4.8 cm LVOT diam: 1.9 cm LVIDs: 3.0 cm Ao root diam: 2.7 cm FS: 36.3 % asc Aorta Diam: 2.5 cm IVSd: 0.66 cm LVPWd: 0.84 cm LV grayson. diameter/BSA (cm/m^2): 2.7 LV sys. diameter/BSA (cm/m^2): 1.7 LA A2 area: 17.3 cm2 RA long axis: 4.1 cm LA A4 area: 17.6 cm2 RA area: 9.5 cm2 LA length (vol): 5.2 cm RA vol: 18.8 ml LA vol: 49.9 ml RA : 10.6 ml/m2 LA vol index: 28.3 ml/m2 IVC diam: 1.4 cm RVD1 (basal): 2.2 cm TAPSE: 1.9 cm Doppler Measurements & Calculations Ao V2 max: 143.5 cm/sec LVOT Max Yariel: 123.4 cm/sec Ao V2 mean: 100.2 cm/sec LV V1 max P.1 mmHg Ao max P.2 mmHg LV V1 VTI: 22.8 cm Ao mean P.4 mmHg CM(I,D): 2.3 cm2 Ao V2 VTI: 28.0 cm CM(V,D): 2.4 cm2 sev ratio: 0.81 CM indexed to BSA (cm^2/m^2): 1.3 MV E max yariel: 82.3 cm/sec TR max yariel: 206.6 cm/sec MV A max yariel: 50.0 cm/sec TR max P.1 mmHg MV E/A: 1.6 PA V2 max: 91.9 cm/sec MV dec time: 0.21 sec PA V2 mean: 68.9 cm/sec PA mean P.0 mmHg PA pr(Accel): 31.5 mmHg SV(LVOT): 63.2 ml Qp/Qs (Roger,Sami): 1.0/4.3 Qp/Qs (V,LVOT): 1.0/1.8 Reading Physician:12:16 PM
[2025-06-03 10:37] LABS: Add Manual Diff / Slide Review NO; Hematocrit 39.5 % (36-46); Hemoglobin 13.2 g/dL (12.0-16.0); Lymphocytes Absolute Auto 2000 /uL (1100-4500); Mean Corpuscular HGB Conc 33.4 % (30-36); Mean Corpuscular Hemoglobin 29.8 PG (26-34); Mean Corpuscular Volume 89.2 fL (80-100); Platelet Count 314 X10^3/uL (150-400)
[2025-06-03 10:55] LABS: Alanine Aminotransferase 19 IU/L (<35); Albumin 4.7 g/dL (3.5-5.0); Albumin Globulin Ratio 1.4 (1.0-2.8); Alkaline Phosphatase 79 U/L (38-126); Blood Urea Nitrogen 15 mg/dL (7-17); Calcium 9.3 mg/dL (8.4-10.2); Carbon Dioxide 27 mmol/L (22-32); Chloride 104 mmol/L (98-107); Estimated Glomerular Filt Rate > 60 mL/min (>60); Globulin 3.3 g/dL (1.7-4.1); Glucose 94 mg/dL (70-99); HEMOLYSIS < 15 (0-50); Magnesium 2.1 mg/dL (1.6-2.3); Potassium 3.8 mmol/L (3.4-5.1); Sodium 141 mmol/L (137-145); Total Protein 8.0 g/dL (6.3-8.2)
[2025-06-03 11:02] LABS: Pregnancy Test Serum,Qual Negative (Negative)
[2025-06-03 11:07] LABS: Troponin I < 0.012 ng/mL (0.01-0.034)
[2025-06-03 11:24] LABS: INR 1.1 (0.9-1.3); Prothrombin Time 12.8 SECONDS (9.4-12.5)
[2025-06-03 11:27] LABS: PTT Partial Thromboplastin Tim 30 SECONDS (25.1-36.5)
--- NOTE | 2025-06-03 12:32 | PC.NURSE ---
1200 Pt to stress test with tech
== END 2025-06-03 13:29 | disposition home or self-care (01) ==
PROVIDERS: Emergency Provider Emergency Medicine; PCP Family Medicine
DX: R07.89 Other chest pain (principal); R00.2 Palpitations; R06.02 Shortness of breath
CPT/HCPCS: 36415; 71045; 80053; 83735; 84484; 84703; 85025; 85379; 85610; 85730; 93005; 93017; 93307; 99283; 99284